=== PATIENT | female | born 1990 | race Two or more races ===

== ENCOUNTER 2023-04-16 06:56 | Emergency (ER) | payer OTHER ==
[~2023-04-16] VITALS: Ht 152.4 cm; Wt 88.9 kg
== END 2023-04-16 10:25 | disposition home or self-care (01) ==
LOC: ER 06:56
DX: J10.1 Influenza due to other identified influenza virus with other respiratory manifestations (principal); Z20.822 Contact with and (suspected) exposure to COVID-19

== ENCOUNTER 2024-01-25 04:01 | Emergency (ER) | payer OTHER ==
[~2024-01-25] VITALS: Ht 152.4 cm; Wt 84.4 kg
[2024-01-25] MEDS ORDERED: KETOROLAC TROMETHAMINE 60 MG VIAL IM STA (05:52)
[2024-01-25] MEDS ORDERED: KETO10TA2 PO (07:11)
== END 2024-01-25 07:23 ==
LOC: ER 04:03
DX: S59.801A Other specified injuries of right elbow, initial encounter (principal); W19.XXXA Unspecified fall, initial encounter; Y93.89 Activity, other specified; Y92.098 Other place in other non-institutional residence as the place of occurrence of the external cause; Y99.8 Other external cause status

== ENCOUNTER 2024-03-13 17:21 | Emergency (ER) | payer OTHER ==
[~2024-03-13] VITALS: Ht 152.4 cm; Wt 84.4 kg
[~2024-03-13 17:21] MED LIST: KETO10TA2 PO
[2024-03-13 19:20] LABS: HEMATOCRIT 37.8 % (36.0-45.00); HEMOGLOBIN 12.3 g/dL (12.0-15.00); MEAN CELL VOLUME 84.1 fL (80.00-100.00); MEAN CORPUSCULAR HEMOGLOBIN 27.4 pg (27.00-32.0); MEAN CORPUSCULAR HGB CONC 32.6 g/dl (32.0-36.0); PLATELET COUNT 344 K/uL (150-450); RED BLOOD COUNT 4.49 M/uL (4.00-6.00); RED CELL DISTRIBUTION WIDTH 16.1 % (11.5-14.5)
[2024-03-13 19:41] LABS: PH,URINE 6.5 (5.0-8.0); URINE APPEARANCE Clear; URINE BILIRRUBIN Negative (NEGATIVE); URINE BLOOD Negative; URINE COLOR Yellow; URINE GLUCOSE Negative (NEGATIVE); URINE KETONE Negative (NEGATIVE); URINE LEUKOCYTE Trace; URINE NITRATE Negative; URINE PROTEIN Negative (NEGATIVE); URINE UROBILINOGEN 0.2 E.U./dl
[2024-03-13 19:42] LABS: URINE EPITHELIAL CELLS 15.9 uL (0.0-38.8); URINE WBC 17.2 uL (0.0-23.2)
[2024-03-13] MEDS ORDERED: CEPHALEXIN500 MG PO (19:57)
[2024-03-13] MEDS ORDERED: FOLIC ACID20 MG PO (20:02)
== END 2024-03-13 20:17 | disposition home or self-care (01) ==
LOC: ER 17:24
DX: N39.0 Urinary tract infection, site not specified (principal); R10.2 Pelvic and perineal pain

== ENCOUNTER 2024-11-08 13:30 | Inpatient (IN) | payer OTHER ==
[~2024-11-08] VITALS: Ht 152.4 cm; Wt 3.2 kg
[~2024-11-08 13:30] MED LIST changes: +CEPHALEXIN500 MG PO; +FOLIC ACID20 MG PO
[2024-11-08 17:05] VITALS: BP 112/70
[2024-11-08] MEDS ORDERED: RINGERS SOLUTION,LACTATED 1,000 ML IV SCH (17:45)
[2024-11-08] MEDS ORDERED: AMPICILLIN SODIUM 2,000 MG VIAL IV ONE (17:45)
[2024-11-08 17:49] LABS: BASO % 0.2 % (0.1-1.2); EOS # 0.03 (0.04-0.54); EOS % 0.3 % (0.7-7.0); LYMPH # 1.78 (1.18-3.74); LYMPH % 15.2 % (19.3-53.1); MEAN PLATELET VOLUME 10.70 fl (9.4-12.4); MONO # 0.90 (0.24-0.82); MONO % 7.7 % (4.7-12.5); NEUT # 8.91 (1.56-6.13); NEUT % 76.2 % (34.0-71.1); RED CELL DISTRIBUTION WIDTH 14.8 % (11.6-14.4)
[2024-11-08] MEDS ORDERED: PRENATAL TABLE1 EAC4 PO (18:15)
[2024-11-08 18:23] LABS: ALT/SGPT 47.0 U/L (12-78); AST/SGOT 24.0 U/L (15-37); BILIRUBIN TOTAL 0.28 mg/dL (0.3-1.2); BUN CREA RATIO 12.0 (7.0-25.0); CREATININE SERUM 0.51 mg/dL (0.55-1.02); GFR 139.75; GLOBULINA 4.2 G/DL (2.4-3.5); GLUCOSE FASTING 118.0 mg/dL (65-100); INR 0.95; OSMOLALITY SERUM 278.0 MOSM/KG (275-295)
[2024-11-08 19:50] VITALS: BP 96/63
[2024-11-08] MEDS ORDERED: AMPICILLIN SODIUM 1,000 MG VIAL IV SCH (21:00)
[2024-11-08 23:26] VITALS: BP 135/75
[2024-11-09 03:54] VITALS: BP 130/79
[2024-11-09] MEDS ORDERED: MORPHINE SULFATE 4 MG/ML CARTRIDGE IV PRN ×2 (07:30→16:00)
[2024-11-09] MEDS ORDERED: OXYTOCIN 500 ML IV ONE (07:30)
[2024-11-09 07:32] VITALS: BP 111/63
[2024-11-09 11:07] VITALS: BP 109/59
[2024-11-09 15:29] VITALS: BP 122/73
[2024-11-09] MEDS ORDERED: OXYTOCIN 10 UNITS/ML VIAL ONE ×2 (15:44→19:55)
[2024-11-09] MEDS ORDERED: ERYTHROMYCIN BASE OPHT 1GM EACH TUBE OP ONE (15:44)
[2024-11-09] MEDS ORDERED: CHLORHEXIDINE GLUCONATE 120 ML BOTTLE TOP ONE (15:44)
[2024-11-09] MEDS ORDERED: OXYTOCIN 1,000 ML IV ONE (16:00)
[2024-11-09] MEDS ORDERED: RINGERS SOLUTION,LACTATED 1,000 ML IV SCH (16:00)
[2024-11-09] MEDS ORDERED: CEFAZOLIN SODIUM 1,000 MG VIAL ONE (16:47)
[2024-11-09] MEDS ORDERED: SIMETHICONE 125 MG CAPSULE PO SCH (17:00)
[2024-11-09] MEDS ORDERED: GABAPENTIN 300 MG CAPSULE PO SCH (17:00)
[2024-11-09] MEDS ORDERED: KETOROLAC TROMETHAMINE 30 MG VIAL IV ONE (17:55)
[2024-11-09] MEDS ORDERED: KETOROLAC TROMETHAMINE 30 MG VIAL ONE (17:58)
[2024-11-09] MEDS ORDERED: ONDANSETRON HCL 2 MG/ML VIAL IV SCH (18:00)
[2024-11-09] MEDS ORDERED: KETOROLAC TROMETHAMINE 30 MG VIAL IV SCH (18:00)
[2024-11-09] MEDS ORDERED: ACETAMINOPHEN 500 MG GEL..CAP PO SCH (18:00)
[2024-11-09] MEDS ORDERED: AMPICILLIN SODIUM 1,000 MG VIAL ONE (18:02)
[2024-11-09 20:38] VITALS: BP 130/76
[2024-11-10 00:28] VITALS: BP 112/74
[2024-11-10 04:00] VITALS: BP 99/67
[2024-11-10 06:23] LABS: BASO % 0.1 % (0.1-1.2); EOS # 0.06 (0.04-0.54); EOS % 0.5 % (0.7-7.0); LYMPH # 1.55 (1.18-3.74); LYMPH % 13.8 % (19.3-53.1); MEAN PLATELET VOLUME 11.20 fl (9.4-12.4); MONO # 0.73 (0.24-0.82); MONO % 6.5 % (4.7-12.5); NEUT # 8.80 (1.56-6.13); NEUT % 78.6 % (34.0-71.1); RED CELL DISTRIBUTION WIDTH 14.9 % (11.6-14.4)
[2024-11-10] MEDS ORDERED: OxyCODONE HCL 5 MG TABLET (ROXICODONE) PO PRN (08:00)
[2024-11-10] MEDS ORDERED: FF) RHO(D) IMMUNE GLOBULIN (POM) IM ONE (08:00)
[2024-11-10] MEDS ORDERED: KETOROLAC TROMETHAMINE 10 MG TABLET PO SCH (08:00)
[2024-11-10 08:28] VITALS: BP 119/75
[2024-11-10] MEDS ORDERED: KETOROLAC TROMETHAMINE 30 MG VIAL IM PRN (08:30)
[2024-11-10] MEDS ORDERED: IRON FUM,PS/FOLIC/BCOMP,C NO.9 1 CAP CAPSULE PO SCH (09:00)
[2024-11-10] MEDS ORDERED: DOCUSATE SODIUM 100MG CAP PO SCH (09:00)
[2024-11-10] MEDS ORDERED: SOD FERRIC GLUC COMPLX/SUCROSE 125 MG in 0.9 % SODIUM CHLORIDE 100 ML IV SCH (09:00)
[2024-11-10 18:39] VITALS: BP 110/72
[2024-11-11] VITALS: BP 119/79
[2024-11-11 08:19] VITALS: BP 121/80
[2024-11-11] MEDS ORDERED: FF) RHO(D) IMMUNE GLOBULIN (POM) IM ONE (10:45)
[2024-11-11 16:00] VITALS: BP 122/77
== END 2024-11-11 15:54 | disposition home or self-care (01) | DRG 788 ==
LOC: OB/GYN 16:25 → LDR 16:25 → O/R 11-09 16:17 → OB/GYN 11-09 18:23
PROVIDERS: Obstetrics & Gynecology; ADMIT Obstetrics & Gynecology; ATTEND Obstetrics & Gynecology
PROC: 4A1HXCZ Monitoring of Products of Conception, Cardiac Rate, External Approach (ICD-10-PCS; 2024-11-08)
PROC: 10D00Z1 Extraction of Products of Conception, Low, Open Approach (ICD-10-PCS; principal; 2024-11-09 16:00)
DX: O61.0 Failed medical induction of labor (principal); Z3A.39 39 weeks gestation of pregnancy; Z37.0 Single live birth

== ENCOUNTER 2024-12-18 06:43 | Emergency (ER) | payer OTHER ==
[~2024-12-18] VITALS: Ht 152.4 cm; Wt 94.8 kg
[~2024-12-18 06:43] MED LIST changes: +PRENATAL TABLE1 EAC4 PO
[2024-12-18] MEDS ORDERED: METRONIDAZOLE/SODIUM CHLORIDE 500 MG/100 ML PIGGYBACK IV ONE ×2 (08:15→08:21)
[2024-12-18] MEDS ORDERED: FAMOTIDINE/PF 20 MG/2 ML VIAL IV ONE (08:15)
[2024-12-18] MEDS ORDERED: FAMOTIDINE/PF 20 MG/2 ML VIAL ONE (08:22)
[2024-12-18 09:06] LABS: BASO % 0.3 % (0.1-1.2); EOS # 0.15 (0.04-0.54); EOS % 1.5 % (0.7-7.0); LYMPH # 2.34 (1.18-3.74); LYMPH % 23.6 % (19.3-53.1); MEAN PLATELET VOLUME 8.80 fl (9.4-12.4); MONO # 0.73 (0.24-0.82); MONO % 7.4 % (4.7-12.5); NEUT # 6.60 (1.56-6.13); NEUT % 66.7 % (34.0-71.1); RED CELL DISTRIBUTION WIDTH 15.4 % (11.6-14.4)
[2024-12-18 09:54] LABS: URINE APPEARANCE Cloudy; URINE BILIRRUBIN Negative (NEGATIVE); URINE BLOOD NHT; URINE COLOR Yellow; URINE GLUCOSE Negative (NEGATIVE); URINE KETONE Trace (NEGATIVE); URINE LEUKOCYTE Large; URINE NITRATE Negative; URINE PROTEIN Trace (NEGATIVE); URINE UROBILINOGEN 0.2 E.U./dl
[2024-12-18 09:59] LABS: URINE CAST 2.05 uL (0.0-1.40); URINE EPITHELIAL CELLS 51.2 uL (0.0-38.8); URINE RBC 37.3 uL (0.0-20.8); URINE WBC 444.4 uL (0.0-23.2)
[2024-12-18 10:20] LABS: ALT/SGPT 25.0 U/L (12-78); AST/SGOT 19.0 U/L (15-37); BILIRUBIN TOTAL 0.17 mg/dL (0.3-1.2); BUN CREA RATIO 26.0 (7.0-25.0); CREATININE SERUM 0.54 mg/dL (0.55-1.02); GFR 130.83; GLOBULINA 4.6 G/DL (2.4-3.5); GLUCOSE FASTING 91.0 mg/dL (65-100); OSMOLALITY SERUM 285.0 MOSM/KG (275-295)
[2024-12-18 10:24] LABS: URINE BACTERIA > 9821.5 uL (0.0-1933); URINE YEAST MANY /hpf
[2024-12-18] MEDS ORDERED: FLUCONAZOLE150 MG PO (11:11)
[2024-12-18] MEDS ORDERED: MACROBID 100 M100 MG PO (11:11)
== END 2024-12-18 11:28 | disposition home or self-care (01) ==
LOC: ER 06:43
PROVIDERS: Student in an Organized Health Care Education/Training Program
DX: B37.31 Acute candidiasis of vulva and vagina (principal); N39.0 Urinary tract infection, site not specified

== ENCOUNTER 2024-12-21 01:32 | Emergency (ER) | payer OTHER ==
[~2024-12-21] VITALS: Ht 152.4 cm; Wt 94.8 kg
[~2024-12-21 01:32] MED LIST changes: +FLUCONAZOLE150 MG PO; +MACROBID 100 M100 MG PO
[2024-12-21 01:43] VITALS: BP 104/75
[2024-12-21] MEDS ORDERED: PROMETHAZINE HCL 50 MG/ML AMPUL IM STA (02:32)
[2024-12-21] MEDS ORDERED: FAMOTIDINE/PF 20 MG/2 ML VIAL IV PUSH STA (02:32)
[2024-12-21] MEDS ORDERED: PROMETHAZINE HCL 50 MG/ML AMPUL IM ONE (02:35)
[2024-12-21] MEDS ORDERED: FAMOTIDINE/PF 20 MG/2 ML VIAL ONE (02:35)
[2024-12-21] MEDS ORDERED: 0.9 % SODIUM CHLORIDE 1,000 ML IV ONE (02:45)
[2024-12-21 02:57] LABS: BASO % 0.4 % (0.1-1.2); EOS # 0.04 (0.04-0.54); EOS % 0.5 % (0.7-7.0); LYMPH # 2.09 (1.18-3.74); LYMPH % 24.9 % (19.3-53.1); MEAN PLATELET VOLUME 9.10 fl (9.4-12.4); MONO # 0.62 (0.24-0.82); MONO % 7.4 % (4.7-12.5); NEUT # 5.59 (1.56-6.13); NEUT % 66.6 % (34.0-71.1); RED CELL DISTRIBUTION WIDTH 15.1 % (11.6-14.4)
[2024-12-21 03:23] LABS: ALT/SGPT 27.0 U/L (12-78); AST/SGOT 15.0 U/L (15-37); BILIRUBIN TOTAL 0.27 mg/dL (0.3-1.2); BUN CREA RATIO 11.0 (7.0-25.0); CREATININE SERUM 0.61 mg/dL (0.55-1.02); GFR 113.66; GLOBULINA 5.1 G/DL (2.4-3.5); GLUCOSE FASTING 110.0 mg/dL (65-100); OSMOLALITY SERUM 280.0 MOSM/KG (275-295)
[2024-12-21 04:39] LABS: URINE APPEARANCE Turbid; URINE BILIRRUBIN Negative (NEGATIVE); URINE BLOOD Moderate; URINE COLOR Yellow; URINE GLUCOSE Negative (NEGATIVE); URINE KETONE Negative (NEGATIVE); URINE LEUKOCYTE Trace; URINE NITRATE Negative; URINE PROTEIN Negative (NEGATIVE); URINE UROBILINOGEN 0.2 E.U./dl
[2024-12-21 04:43] LABS: URINE BACTERIA 348.7 uL (0.0-1933); URINE EPITHELIAL CELLS 180.6 uL (0.0-38.8); URINE RBC 422.2 uL (0.0-20.8); URINE WBC 81.3 uL (0.0-23.2)
[2024-12-21 05:02] LABS: URINE CAST 0.00 uL (0.0-1.40); URINE CRYSTALS FEW /HPF
[2024-12-21] MEDS ORDERED: CEPHALEXIN250 MG/5 M PO (05:58)
[2024-12-21] MEDS ORDERED: ZOFRAN8 MG PO (05:58)
[2024-12-21] MEDS ORDERED: PEPCID40 MG PO (05:58)
[2024-12-21 06:39] VITALS: O2SAT 100
== END 2024-12-21 06:42 ==
LOC: ER 01:32
PROVIDERS: General Practice
DX: R11.10 Vomiting, unspecified (principal); N39.0 Urinary tract infection, site not specified